=== PATIENT | male | born 1985 | race Caucasian/White ===

== ENCOUNTER 2020-03-31 14:43 | Emergency (ER) | payer BC ==
[2020-03-31 15:29] LABS: HEMOGLOBIN 16.5 gm/dl (14.0-17.5); RED BLOOD COUNT 5.64 M/UL (4.20-5.50); WHITE BLOOD COUNT 6.6 K/UL (4.5-11.0)
[2020-03-31 15:55] LABS: BUN/CREATININE RATIO 18 (0-10)
[2020-03-31] MEDS ORDERED: PROTONIX40 MG PO (19:21)
[2020-04-02 09:13] LABS: HBSAG SCREEN Negative (Negative); HEP A AB, IGM Negative (Negative); HEP B CORE AB, IGM Negative (Negative); HEP C VIRUS AB <0.1 (0.0-0.9)
== END 2020-03-31 19:50 | disposition home or self-care (01) ==
LOC: ER1 14:43
PROVIDERS: Emergency Medicine
DX: R07.89 Other chest pain (principal); R79.89 Other specified abnormal findings of blood chemistry; R06.02 Shortness of breath
CPT/HCPCS: 71045; 80053; 80074; 82550; 82553; 83690; 83735; 83874; 84484; 85025; 93005; 96374; 96375; 99285; J1885

== ENCOUNTER → 2020-04-08 | Outpatient (CLI) | payer BC ==
[~2020-04-08] MED LIST: PROTONIX40 MG PO
== END ==
LOC: EXRD 10:26
DX: R94.5 Abnormal results of liver function studies (principal); R93.2 Abnormal findings on diagnostic imaging of liver and biliary tract
CPT/HCPCS: 76705

== ENCOUNTER → 2020-07-02 | Outpatient (CLI) | payer BC | LOC: HEART 5 10:00 | DX: R07.9 Chest pain, unspecified (principal) | CPT/HCPCS: 93306 ==

== ENCOUNTER → 2021-12-13 | Outpatient (CLI) | payer BC | LOC: KOH-I 15:00 | DX: J32.9 Chronic sinusitis, unspecified (principal); J32.4 Chronic pansinusitis | CPT/HCPCS: 70486 ==